=== PATIENT | female | born 1975 | race African-American/Black ===

== ENCOUNTER 2016-11-29 05:55 | Emergency (ER) | payer OTHER ==
[~2016-11-29] VITALS: Ht 177.8 cm; Wt 101.6 kg
[2016-11-29 06:47] VITALS: BP 150/84
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
[2016-11-29] MEDS ORDERED: diazePAM 2 MG TABLET PO ONE (07:00)
[2016-11-29] MEDS ORDERED: MORPHINE SULFATE 10 MG/ML VIAL. IM ONE (07:00)
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
[2016-11-29] MEDS ORDERED: CYCL5TAB PO (07:40)
[2016-11-29] MEDS ORDERED: IBUP-1060 PO (07:40)
[2016-11-29] MEDS ORDERED: PENI500T PO (07:40)
== END 2016-11-29 07:46 | disposition home or self-care (01) ==
LOC: ER 05:55
DX: R51 Headache (principal); K04.7 Periapical abscess without sinus; I10 Essential (primary) hypertension; M54.2 Cervicalgia; M54.5 Low back pain; E11.9 Type 2 diabetes mellitus without complications; V43.52XA Car driver injured in collision with other type car in traffic accident, initial encounter; Y93.89 Activity, other specified; Y99.8 Other external cause status; Y92.488 Other paved roadways as the place of occurrence of the external cause
CPT/HCPCS: 70450; 72125; 72128; 99284-25